=== PATIENT | female | born 1930 | race Caucasian/White ===

== ENCOUNTER 2017-01-14 23:11 | Emergency (ER) | payer OTHER ==
--- NOTE | ~2017-01-14 | CT71 ---
[facility] A Service of [facility] RADIOLOGY TEXT RESULTS PATIENT: RICHELLE SANTANA LOCATION: [facility] : 32 UNIT #: [id number] AGE: [address]: Srikanth Mas MD SEX: F ORDER DR: [id number] [facility]. [place], [place] [address] [id number] MR#: [id number] #: [id number] NAME: RICHELLE SANTANA. : 1930 SEX: F STUDY DATE/TIME: 01/15/2017 0:08 UNIT: [facility] ROOM: STUDY DESCRIPTION: CT Head Wo Contrast Attending Physician: Srikanth Mas M.D. Ordering Physician: Srikanth Mas M.D. Primary Care Physician: No Primary Care Physician MEDICAL IMAGING REPORT This report is preliminary unless electronic signature is present EXAM CT head. INDICATION Fall. Hit back of the head. Dizziness and weakness for [address] of the head without contrast. This CT exam was performed with one or more of the following radiation dose reduction techniques: automatic exposure control, adjustment of mA and/or kV according to patient size, and iterative reconstruction. COMPARISON CT head, 03/11/2016. FINDINGS There is no acute intracranial hemorrhage, mass lesion, or acute infarct. There is generalized global cerebral atrophy and some chronic small vessel changes. The ventricles and basilar cisterns are normal in size and configuration. No extraaxial collections. There are vascular calcifications of the intracranial vasculature. No acute osseous abnormalities. The visualized paranasal sinuses and mastoid air cells are clear. IMPRESSION 1. No acute intracranial findings. 2. Atrophy and chronic small vessel changes. Dictated by... [facility] A Service [facility] RADIOLOGY TEXT RESULTS PATIENT: RICHELLE SANTANA LOCATION: [facility] : 32 UNIT #: [id number] AGE: [address]: Srikanth Mas MD SEX: F ORDER DR: Richy Leon M.D. THIS IS AN ELECTRONICALLY VERIFIED REPORT Richy Leon M.D. at 01/15/2017 11:39 PM MADELYN/homar TD: 01/15/2017 10:35 JOB #: [id number] MEDICAL IMAGING REPORT Page 1 of 1 COPY
--- NOTE | ~2017-01-14 | EKG ---
PATIENT: RICHELLE SANTANA UNIT #: [id number] Ventricular Rate: 81 BPM Atrial Rate: 144 BPM QRS Duration: 80 ms Q-T Interval: 408 ms QTC Calculation(Bezet): 473 ms P [place]: 102 degrees Calculated R [place]: 64 degrees Calculated T [place]: 79 degrees Diagnosis Line: Sinus tachycardia with 2nd degree A-V block Diagnosis Line: (Mobitz I) Diagnosis Line: Septal infarct , age undetermined Diagnosis Line: Abnormal ECG Diagnosis Line: No previous ECGs available Diagnosis Line: Confirmed by FOZIA GARCIA MD ([id number]) on Diagnosis Line: 01/15/2017 8:23:07 AM INTERPRETING MD: JOSE RODRIGUEZ
[~2017-01-14 23:11] MED LIST: ACETAMINOPHEN500 M3 PO; ASPIRIN81 M1 PO; BETAPACE80 MG PO; GLUCOPHAGE500 MG PO; HYDROCHLOROTHIA25 MG PO; POTASSIUM CHLO10 ME1 PO; PRINIVIL40 MG PO; ZOCOR PO
[2017-01-15 00:11] LABS: BASOPHIL% 0.5 % (0-2.5); EOSINOPHIL# 0.7 X10e3 (0-0.7); EOSINOPHIL% 9.2 % (0.0-7.0); HEMATOCRIT 34.1 % (35.0-45.0); HEMOGLOBIN 10.8 gm/dL (12.0-16.0); LYMPHOCYTE# 1.4 X10e3 (1.0-3.5); LYMPHOCYTE% 17.3 % (17.0-45.0); MEAN CELL VOLUME 73.9 FL (83-96); MEAN CORPUSCULAR HEMOGLOBIN 23.3 PG (28-34); MEAN CORPUSCULAR HGB CONC 31.6 g/dL (30-36); MEAN PLATELET VOLUME 8.6 FL (6.5-11.5); MONOCYTE# 0.7 X10e3 (0-1.0); MONOCYTE% 8.8 % (3.0-12.0); NEUTROPHIL# 5.1 X10e3 (1.5-7.1); NEUTROPHIL% 64.2 % (40-75); PLATELET COUNT 216 X10e3 (140-420); RED BLOOD COUNT 4.62 X10e (3.90-5.30); RED CELL DISTRIBUTION WIDTH 17.7 % (11.0-15.5); WHITE BLOOD COUNT 7.9 X10e3 (4.0-10.5)
[2017-01-15 00:12] LABS: POC - CKMB <1.0 ng/mL (0.0-7.9); POC - TROPONIN <0.05 ng/mL (<=0.05)
[2017-01-15 00:13] LABS: DIFF IND NO
[2017-01-15 00:22] LABS: INR 3.8; PROTHROMBIN TIME (PATIENT) 41.7 SECONDS (10.0-11.7)
[2017-01-15 00:57] LABS: BUN/CREATININE RATIO 16.25; CALCIUM SERUM 9.2 mg/dL (8.4-10.2); CREATININE SERUM 1.6 mg/dL (0.6-1.4); GLOM FILT RATE Estimated 29.1 mL/min (>60); POTASSIUM 4.5 mmol/L (3.5-5.1)
[2017-04-05] MEDS ORDERED: SOTALOL120 MG PO (22:39)
[2017-04-05] MEDS ORDERED: K-TAB ER20 MEQ PO (22:39)
[2017-04-05] MEDS ORDERED: HCTZ PO (22:40)
[2017-04-05] MEDS ORDERED: GLUCOTROL PO (22:41)
[2017-04-05] MEDS ORDERED: GLUCOPHAGE500 MG PO (22:42)
[2017-04-05] MEDS ORDERED: AMLODIPINE BESY10 MG PO (22:42)
[2017-04-05] MEDS ORDERED: PRINIVIL40 MG PO (22:43)
[2017-04-05] MEDS ORDERED: COUMADIN5 MG PO (22:43)
[2017-04-05] MEDS ORDERED: SIMVASTATIN40 MG PO (22:43)
== END 2017-01-15 01:25 | disposition home or self-care (01) ==
LOC: CED 23:11
PROVIDERS: Emergency Medicine
DX: S09.90XA Unspecified injury of head, initial encounter (principal); S00.03XA Contusion of scalp, initial encounter; R19.7 Diarrhea, unspecified; R53.1 Weakness; W19.XXXA Unspecified fall, initial encounter; Y92.9 Unspecified place or not applicable
CPT/HCPCS: 36415; 70450; 80048; 82553; 82947; 84484; 85025; 85610; 93005; 96360; 99285